=== PATIENT | female | born 1965 ===

== ENCOUNTER 2019-03-01 23:51 | Emergency (ER) | payer OTHER ==
[2019-03-01] MEDS ORDERED: Sodium Chloride 0.9% 10 ML Syringe FLUSH PRN (23:57)
--- NOTE | 2019-03-02 00:01 | EDM.PDOC ---
ED HPI GENERAL MEDICAL PROBLEM - General Chief Complaint: General Stated Complaint: Weakness / Nausea / SOB Time Seen by Provider: 03/01/19 23:55 Source of Information: Reports: Patient, RN, RN Notes Reviewed History Limitations: Reports: No Limitations - History of Present Illness INITIAL COMMENTS - FREE TEXT/NARRATIVE: Patient is brought to the ED at [facility] for the evaluation of weakness, SOB, and nausea that started earlier this evening. She states symptoms came on suddenly. She felt so weak she slumped to the floor. She did not fall. No head injury or trauma. Patient states when this has happened in the past, her blood sugar is usually quit elevated. She denies any focal neurological deficits. No vomiting or diarrhea. She states she feels SOB. No cough or recent URI. Patient denies any chest pain. Patient has a history of DM, CAD, high cholesterol, peripheral neuropathy, and sinus problems. She does not feel dizzy and denies any headache. Patient had just taken a very warm bath when symptoms started. Onset: Today, Sudden ED ROS GENERAL - Review of Systems Review Of Systems: See Below Constitutional: Reports: Weakness. Denies: Fever, Chills Respiratory: Reports: Shortness of Breath. Denies: Cough Cardiovascular: Denies: Chest Pain, Palpitations GI/Abdominal: Reports: Nausea. Denies: Abdominal Pain, Diarrhea, Vomiting Skin: Reports: No Symptoms Neurological: Reports: No Symptoms ED EXAM, GENERAL - Physical Exam Exam: See Below Exam Limited By: No Limitations General Appearance: Alert, No Apparent Distress Respiratory/Chest: No Respiratory Distress, Lungs Clear, Normal Breath Sounds Cardiovascular: Normal Peripheral Pulses, Regular Rate, Rhythm Peripheral Pulses: 2+: Radial (L), Radial (R) GI/Abdominal: Normal Bowel Sounds, Soft, Non-Tender Extremities: Normal Inspection Neurological: Alert, Oriented Skin Exam: Warm, Dry, Intact, Normal Color EKG INTERPRETATION EKG Date: 03/02/19 Time: 00:09 Rhythm: NSR Rate (Beats/Min): 71 [place]: Normal P-Wave: Present QRS: Normal ST-T: Normal QT: Normal CT/PQ Interval: 0.17 Comparison: NA - No Prior EKG EKG Interpretation Comments: 1. Sinus Rhythm 2. Probable left atrial enlargement 3. Abnormal T wave Course - Orders/Labs/Meds Orders: Active Orders 24 hr Category Date Time Status EKG 12 Lead [EKG Documentation Completion] [RC] STAT Care 03/01/19 23:58 Active Chest 1V Frontal [CR] Stat Exams 03/01/19 23:55 Taken Sodium Chloride 0.9% [Normal Saline] 1,000 ml Med 03/02/19 00:23 Active IV ONETIME Sodium Chloride 0.9% [Saline Flush] Med 03/01/19 23:57 Active 10 ml FLUSH ASDIRECTED PRN Peripheral IV Insertion Adult [OM.PC] Routine Oth 03/01/19 23:57 Ordered Medication Orders Sodium Chloride (Normal Saline) 1,000 mls @ 999 mls/hr IV ONETIME ONE Stop: 03/02/19 01:23 Last Admin: 03/02/19 00:28 Dose: 999 mls/hr Sodium Chloride (Saline Flush) 10 ml FLUSH ASDIRECTED PRN PRN Reason: Keep Vein Open Labs: Laboratory Tests 03/01/19 03/02/19 Range/Units 00:06 00:06 WBC 6.9 (4.0-10.0) x10^3/uL RBC 4.63 (4.00-5.50) x10^6/uL Hgb 12.0 (12.0-16.0) g/dL Hct 38.0 (33.0-47.0) % MCV 82.1 (78.0-93.0) fL MCH 25.9 L (26.0-32.0) pg MCHC 31.6 L (32.0-36.0) g/dL RDW Coeff of Benedict 16.8 H (10.0-15.0) % Plt Count 249 (130-400) x10^3/uL Neut % (Auto) 71.1 (50.0-80.0) % Lymph % (Auto) 18.2 L (25.0-50.0) % [place] % (Auto) 8.9 (2.0-11.0) % Eos % (Auto) 1.5 (0.0-4.0) % Baso % (Auto) 0.3 (0.2-1.2) % Sodium 141 (136-145) mmol/L Potassium 4.2 (3.5-5.1) mmol/L Chloride 101 (98-107) mmol/L Carbon Dioxide 34 H (21-32) mmol/L Anion Gap 10.2 (10-20) mmol/L BUN 28 H (7-18) mg/dL Creatinine 1.4 H (0.55-1.02) mg/dL Est Cr Clr Drug Dosing TNP Estimated GFR (MDRD) 39 Glucose 178 H (74-106) mg/dL Calcium 9.2 (8.5-10.1) mg/dL Corrected Calcium 9.52 (8.5-10.1) mg/dL Magnesium 1.7 L (1.8-2.4) mg/dL Total Bilirubin 0.7 (0.2-1.0) mg/dL AST 15 (15-37) U/L ALT 18 (14-59) U/L Alkaline Phosphatase 93 (46-116) U/L Creatine Kinase 89 (26-192) U/L Troponin I 0.053 (<=0.056) ng/mL Total Protein 8.0 (6.4-8.2) g/dL Albumin 3.6 (3.4-5.0) g/dL Globulin 4.4 Albumin/Globulin Ratio 0.82 Meds: Medications Generic Name Dose Route Start Last Admin Trade Name Freq PRN Reason Stop Dose Admin Sodium Chloride 1,000 mls @ 999 mls/hr 03/02/19 00:23 03/02/19 00:28 Normal Saline IV 03/02/19 01:23 999 mls/hr ONETIME ONE Administration Sodium Chloride 10 ml 03/01/19 23:57 Saline Flush FLUSH ASDIRECTED PRN Keep Vein Open Discontinued Medications Generic Name Dose Route Start Last Admin Trade Name Freq PRN Reason Stop Dose Admin Ondansetron HCl 4 mg 03/02/19 00:23 03/02/19 00:28 Zofran IVPUSH 03/02/19 00:24 4 mg ONETIME ONE Administration Departure - Departure Time of Disposition: 00:44 Disposition: Home, Self-Care 01 Condition: Good Clinical Impression: Near syncope - Discharge Information *PRESCRIPTION DRUG MONITORING PROGRAM REVIEWED*: Not Applicable *COPY OF PRESCRIPTION DRUG MONITORING REPORT IN PATIENT PHILIPPE: Not Applicable Instructions: Near-Syncope Referrals: PCP,Not In Area [Primary Care Provider] - Forms: ED Department Discharge Additional Instructions: 1. Stay well hydrated and rest 2. Stay in a cool area, heat could make your symptoms worse at this point 3. Labs, EKG, and xray were all normal 4. Keep blood sugars under control 5. May want to see your PCP for follow up as symptoms warrant - Problem List Review Problem List Initiated/Reviewed/Updated: Yes - My Orders Last 24 Hours: My Active Orders 03/01/19 23:55 Chest 1V Frontal [CR] Stat 03/01/19 23:57 Sodium Chloride 0.9% [Saline Flush] 10 ml FLUSH ASDIRECTED PRN Peripheral IV Insertion Adult [OM.PC] Routine 03/01/19 23:58 EKG 12 Lead [EKG Documentation Completion] [RC] STAT 03/02/19 00:23 Sodium Chloride 0.9% [Normal Saline] 1,000 ml IV ONETIME - Assessment/Plan Last 24 Hours: My Active Orders 03/01/19 23:55 Chest 1V Frontal [CR] Stat 03/01/19 23:57 Sodium Chloride 0.9% [Saline Flush] 10 ml FLUSH ASDIRECTED PRN Peripheral IV Insertion Adult [OM.PC] Routine 03/01/19 23:58 EKG 12 Lead [EKG Documentation Completion] [RC] STAT 03/02/19 00:23 Sodium Chloride 0.9% [Normal Saline] 1,000 ml IV ONETIME Assessment:: Near Syncope Plan: Labs, EKG, and xray results discussed with patient. No acute emergency found. Recommend at this point rest, lots of fluids and keep blood sugars under control. Discussed non-symptomatic pneumoperitoneum with patient. May want to see her PCP for a follow up as symptoms warrant.
[2019-03-02] MEDS ORDERED: Ondansetron 4 MG/2 ML SDV IVPUSH ONE (00:23)
[2019-03-02] MEDS ORDERED: Sodium Chloride 0.9% 1,000 ML IV ONE (00:23)
[2019-03-02 00:33] LABS: CHLORIDE,CL 101 mmol/L (98-107); SODIUM,NA 141 mmol/L (136-145)
[2019-03-02 00:35] LABS: ANION GAP 10.2 mmol/L (10-20)
--- NOTE | 2019-03-02 08:13 | CR ---
[id number] RAD/RAD Chest PA or AP 1V EXAM: FRONTAL CHEST INDICATION: Shortness of breath. COMPARISON: None. DISCUSSION: The lungs are hypoinflated with central vascular crowding and basilar atelectasis which could obscure other underlying pathology. Gas under the left hemidiaphragm is felt to likely be within the stomach, but lateral decubitus views or cross-sectional abdominal imaging could help further evaluate for pneumoperitoneum depending on the patient's clinical history, signs and symptoms. The heart is mildly enlarged with borderline central vascular congestion. IMPRESSION: 1. Gas in the left hemidiaphragm. No gas is seen under the right hemidiaphragm and this is felt to likely be within a bowel loop, but left lateral decubitus images of the abdomen could provide further evaluation for pneumoperitoneum. 2. Cardiomegaly with borderline central vascular congestion. 3. Low lung volumes. Nik Mathew MD 03/02/19 0811 Thank you for allowing us to participate in the care of your patient.
== END 2019-03-02 02:02 | disposition home or self-care (01) ==
LOC: VM.ED 23:51
DX: R55 Syncope and collapse (principal)
CPT/HCPCS: 71045; 80053; 82550; 83735; 84484; 85025; 93005; 96361; 96374; 99285; J2405; J7030